=== PATIENT | female | born 1960 | race Caucasian/White ===

== ENCOUNTER 2019-11-10 06:00 | Outpatient (RCR) | payer MEDICARE, SELFPAY | END 2019-11-23 00:01 | LOC: LAB 06:00 | PROVIDERS: Family Provider Family Medicine; Visit Provider Nurse Practitioner Family | DX: N39.0 Urinary tract infection, site not specified (principal); G40.219 Localization-related (focal) (partial) symptomatic epilepsy and epileptic syndromes with complex partial seizures, intractable, without status epilepticus; F03.91 Unspecified dementia, unspecified severity, with behavioral disturbance | CPT/HCPCS: 36415; 80177; 80185; 81001 ×2; 87077; 87086 ×3; 87186 ==

== ENCOUNTER 2021-10-09 09:37 | Inpatient (IN) | payer MEDICARE, MEDICAID, SELFPAY ==
--- NOTE | 2021-10-09 09:39 | XR_ITS ---
WS: [id number] Exam: XR chest 1V portable [id number] Date/Time of Exam: 10/09/2021 9:40 AM Reason For Exam: weakness No priors. Groundglass infiltrate in the right lower lobe. Left lung is clear. Normal cardiomediastinal silhouet te. The lungs are fully inflated. No pleural effusions. Bony structures are intact. XR/XR chest 1V portable [id number] IMPRESSION: 1. Groundglass infiltrate in the right lower lobe. This could represent chronic change or active pneumonia.
[2021-10-09 09:45] VITALS: BP 136/86; PULSE 104; RESP 20; TEMP 36.8; O2SAT 96; BMI 36.5
--- NOTE | 2021-10-09 12:31 | PC.NURSE ---
Unable to draw blood, will save vein for IV.
[2021-10-09 12:50] VITALS: BP 116/79; PULSE 81; RESP 16; O2SAT 100
[2021-10-09 15:31] VITALS: BP 95/73; PULSE 108; O2SAT 95
--- NOTE | 2021-10-09 16:25 | ED_ITS ---
HPI - General Adult General: Chief complaint: General Medical Stated complaint: GENERAL WEAKNESS/ NOT EATING Time Seen by Provider: 10/09/21 16:11 History of Present Illness: HPI narrative: 61-year-old female presents emergency room with her sister. She has been having stomach upset for the last week. She has had recurrent UTIs (~urinalysis with a week ago that was normal). But the patient has not really been acting her normal self she has been weak and not eating or drinking well. She is concerned she is dehydrated. Evidently she was brought here by ambulance but the ambulance brought her to the waiting room. History is very limited patient is aphasic due to hydrops. Onset (ago): week(s) Location: abdomen Severity: mild Relieving factors: none Exacerbating factors: none Associated symptoms: Reports vomiting; Deny cough, decreased appetite, fevers/chills, rash, seizures, short of breath or weakness Treatments prior to arrival: none Review of Systems General: Reports: ROS unobtainable due to medical condition (Patient aphasic. Vomiting reported by custodial and by family member at) GI: Reports: vomiting Skin/Breast: Denies: rash [facility] PFS: Medical History (Updated 10/12/21 @ 07:38 by Estevan Alexis DO) COVID-19 Hydrops fetalis, antepartum Intellectual disability [facility] resident Seizure disorder Physical Exam Const: COMMON NORMALS: no acute distress GENERAL APPEARANCE: cooperative and comfortable ORIENTATION/CONSCIOUSNESS: Yes awake HENMT: COMMON NORMALS: normocephalic, atraumatic and external ears normal HEAD & SCALP: normocephalic and atraumatic EXTERNAL EAR: Yes external ears normal Lymph: LYMPHATIC: no lymphadenopathy noted and no lymphedema noted Resp: COMMON NORMALS: normal respiratory effort and No use of accessory muscles AUSCULTATION: rhonchi Cardio: COMMON NORMALS: regular rate, regular rhythm and No murmurs present (Cardio) RATE: regular rate RHYTHM: regular rhythm GI: COMMON NORMALS: Soft to palpation and No hepatosplenomegaly present AUSCULTATION: Yes normoactive bowel sounds PALPATION: Yes Soft to palpation, No Tenderness to palpation present (GI), No Guarding due to palpation present (GI) and Yes No hepatosplenomegaly present Extremity: COMMON NORMALS: normal to inspection, capillary refill normal, no clubbing, cyanosis or edema, no calf tenderness and no pedal edema Skin: COMMON NORMALS: no rashes or lesions noted GENERAL SKIN EXAM: no rashes or lesions noted Course Vital Signs: Vital signs: Vital Signs Temperature 98.2 F 10/12/21 03:50 Pulse Rate 79 10/12/21 03:50 Respiratory Rate 17 10/12/21 03:50 Blood Pressure 138/59 10/12/21 03:50 Pulse Oximetry 94 10/12/21 03:50 MDM - General Adult MDM Narrative: Medical decision making narrative: Labs imaging and EKG reviewed. Pneumonia and hypernatremia. Reviewed results with family member at the bedside. Will admit discussed with Dr. West orders are written. Lab Data: Labs: Lab Results 10/08/21 10/09/21 10/09/21 23:37 16:55 16:55 WBC 21.5 10^3/uL H 10 ^3/uL (4.0-10.0) RBC 4.90 10^6/uL 10^6 /uL (4.1-5.3) Hgb 15.5 g/dL H g/dL (11.5-15.3) Hct 49.3 % H % (37.0-47.0) MCV 100.6 fl H fl (81-99) MCH 31.6 pg pg (28.0-34.0) MCHC 31.4 g/dL g/dL (30.0-36.0) RDW 14.1 % % (12.1-15.1) Plt Count 243 10^3/cmm 10^3 /cmm (130-400) MPV 12.7 fL H fL (7.4-10.4) Neut % (Auto) 82.6 % % Lymph % (Auto) 11.5 % % [place] % (Auto) 4.7 % % Eos % (Auto) 0.6 % % Baso % (Auto) 0.1 % % Neut # (Auto) 17.78 10^3/uL H 1 0^3/uL (1.8-7.7) Lymph # (Auto) 2.5 10^3/uL 10^3/ uL (0.8-4.8) [place] # (Auto) 1.0 10^3/uL H 10^ 3/uL (0.2-0.9) Eos # (Auto) 0.1 10^3/uL 10^3/ uL (0.0-0.8) Baso # (Auto) 0.0 10^3/uL 10^3/ uL (0.0-0.1) Nucleated RBC % (a uto) 0 % % Nucleated RBCs # 0.0 /100WBC /100W BC Sodium 160 mmol/L H mmol /L (136-145) Potassium 4.1 mmol/L mmol/L (3.5-5.1) Chloride 119 mmol/L H mmol /L (98-107) Carbon Dioxide 29 mmol/L mmol/L (22-29) Anion Gap 16.1 (5-19) BUN 30 mg/dL H mg/dL (8-23) Creatinine 0.7 mg/dL mg/dL (0.5-0.9) GFR Calculation 85.4 mL/min L mL/ min (90-130) Glucose 134 mg/dL H mg/dL (65-115) Estimat Average Gl ucose Hemoglobin A1c Calculated Osmolal ity 338 mOsm/kg H mOs m/kg (285-295) Calcium 8.9 mg/dL mg/dL (8.5-10.5) Total Bilirubin 0.4 mg/dL mg/dL (0.15-1.2) AST 12 U/L U/L (0-32) ALT 9 U/L U/L (0-33) Alkaline Phosphata se 150 IU/L H IU/L (35-105) Total Protein 8.1 g/dL g/dL (6.6-8.7) Albumin 4.1 g/dL g/dL (3.5-5.2) Globulin 4.0 g/dL g/dL (1.3-4.6) Urine Color Urine Appearance Urine pH Ur Specific Gravit y Urine Protein Urine Glucose (UA) Urine Ketones Urine Blood Urine Nitrate Urine Bilirubin Urine Urobilinogen Ur Leukocyte Rachael ase Urine RBC Urine WBC Ur Squamous Epith Cells Amorphous Sediment Urine Bacteria Hyaline Casts Urine Mucus Phenytoin Influenza Type A A g Negative (Negative) Influenza Type B A g Negative (Negative) SARS-CoV-2 Ag (Rap id) 10/09/21 10/09/21 10/09/21 16:55 16:55 16:55 WBC RBC Hgb Hct MCV MCH MCHC RDW Plt Count MPV Neut % (Auto) Lymph % (Auto) [place] % (Auto) Eos % (Auto) Baso % (Auto) Neut # (Auto) Lymph # (Auto) [place] # (Auto) Eos # (Auto) Baso # (Auto) Nucleated RBC % (a uto) Nucleated RBCs # Sodium Potassium Chloride Carbon Dioxide Anion Gap BUN Creatinine GFR Calculation Glucose Estimat Average Gl ucose 128 Hemoglobin A1c 6.1 % H % (4.0-6.0) Calculated Osmolal ity Calcium Total Bilirubin AST ALT Alkaline Phosphata se Total Protein Albumin Globulin Urine Color Yellow (Yellow) Urine Appearance Cloudy (CLEAR) Urine pH 5 (5-7) Ur Specific Gravit y 1.025 (1.005-1.030) Urine Protein 1+ H (Negative) Urine Glucose (UA) Trace H (Normal) Urine Ketones 1+ H (Negative) Urine Blood Neg (Negative) Urine Nitrate Negative (Negative) Urine Bilirubin 1+ H (Negative) Urine Urobilinogen 4 mg/dL H mg/dL (Negative) Ur Leukocyte Rachael ase 2+ H (Negative) Urine RBC 0-4 /hpf H /hpf (0-2) Urine WBC 5-10 /hpf H /hpf (0-5) Ur Squamous Epith Cells 5-10 /hpf H /hpf (0-5) Amorphous Sediment Not Reportable Urine Bacteria 3+ /hpf H /hpf (NONE) Hyaline Casts 0-4 /lpf H /lpf Urine Mucus 1+ /hpf /hpf Phenytoin Influenza Type A A g Influenza Type B A g SARS-CoV-2 Ag (Rap id) Negative (Negative) 10/09/21 16:55 WBC RBC Hgb Hct MCV MCH MCHC RDW Plt Count MPV Neut % (Auto) Lymph % (Auto) [place] % (Auto) Eos % (Auto) Baso % (Auto) Neut # (Auto) Lymph # (Auto) [place] # (Auto) Eos # (Auto) Baso # (Auto) Nucleated RBC % (a uto) Nucleated RBCs # Sodium Potassium Chloride Carbon Dioxide Anion Gap BUN Creatinine GFR Calculation Glucose Estimat Average Gl ucose Hemoglobin A1c Calculated Osmolal ity Calcium Total Bilirubin AST ALT Alkaline Phosphata se Total Protein Albumin Globulin Urine Color Urine Appearance Urine pH Ur Specific Gravit y Urine Protein Urine Glucose (UA) Urine Ketones Urine Blood Urine Nitrate Urine Bilirubin Urine Urobilinogen Ur Leukocyte Rachael ase Urine RBC Urine WBC Ur Squamous Epith Cells Amorphous Sediment Urine Bacteria Hyaline Casts Urine Mucus Phenytoin 46.4 ug/mL H* ug/ mL (10-20) Influenza Type A A g Influenza Type B A g SARS-CoV-2 Ag (Rap id) Discharge Plan Discharge Patient Disposition: Admitted As Inpatient Admit Provider: Fracisco Robison Clinical Impression: Pneumonia, AMS (altered mental status), Hydrops fetalis, antepartum, Intellectual disability, Hypernatremia, Dehydration, [facility] resident Condition: Stable Coding Level of Care Code ED Medical Instrument Technician for Chg Fwd Exam Comprehensive
[2021-10-09 17:00] VITALS: PULSE 100; O2SAT 95
[2021-10-09 17:12] LABS: Basophils % 0.1 %; Eosinophils # 0.1 10^3/uL (0.0-0.8); Eosinophils % 0.6 %; Hematocrit 49.3 % (37.0-47.0); Hemoglobin 15.5 g/dL (11.5-15.3); Lymphocytes # 2.5 10^3/uL (0.8-4.8); Lymphocytes % 11.5 %; Mean Corpuscular HGB Conc 31.4 g/dL (30.0-36.0); Mean Corpuscular Hemoglobin 31.6 pg (28.0-34.0); Mean Corpuscular Volume 100.6 fl (81-99); Mean Platelet Volume 12.7 fL (7.4-10.4); Monocytes % 4.7 %; Neutrophils # 17.78 10^3/uL (1.8-7.7); Neutrophils % 82.6 %; Nucleated Red Blood Cells % 0 %; Platelet Count 243 10^3/cmm (130-400); Red Cell Distribution Width 14.1 % (12.1-15.1); White Blood Count 21.5 10^3/uL (4.0-10.0)
[2021-10-09 17:31] LABS: Alanine Aminotransferase 9 U/L (0-33); Albumin Level 4.1 g/dL (3.5-5.2); Alkaline Phosphatase 150 IU/L (35-105); Anion Gap 16.1 (5-19); Aspartate Amino Transferase 12 U/L (0-32); Blood Urea Nitrogen 30 mg/dL (8-23); Calcium 8.9 mg/dL (8.5-10.5); Carbon Dioxide 29 mmol/L (22-29); Chloride 119 mmol/L (98-107); Glomerular Filtration Rate 85.4 mL/min (90-130); Glucose 134 mg/dL (65-115); Osmolality Calculated 338 mOsm/kg (285-295); Potassium 4.1 mmol/L (3.5-5.1); Sodium 160 mmol/L (136-145); Total Bilirubin 0.4 mg/dL (0.15-1.2); Total Protein 8.1 g/dL (6.6-8.7)
--- NOTE | 2021-10-09 17:50 | CTR_ITS ---
PROCEDURE INFORMATION: Exam: CT Chest With Contrast; Diagnostic Exam date and time: 10/09/2021 5:50 PM Age: 61 years old Clinical indication: Other: Sepsis; Shortness of breath; Additional info: Sepsis, possible pna TECHNIQUE: Imaging protocol: Diagnostic computed tomography of the chest with contrast. Radiation optimization: All CT scans at this facility use at least one of these dose optimization techniques: automated exposure control; mA and/or kV adjustment per patient size (includes targeted exams where dose is matched to clinical indication); or iterative reconstruction. Contrast material: OMNI 300; Contrast volume: 95 ml; Contrast route: INTRAVENOUS (IV); COMPARISON: CR XR chest 1V portable [id number] 10/09/2021 9:59 AM RADIATION DOSE METRICS: Total DLP (mGy-cm): 2135.87 FINDINGS: Lungs: Ground-glass opacities in the right middle and lower lobes. Dependent atelectasis in both lungs. Pleural spaces: Unremarkable. No pneumothorax. No pleural effusion. Heart: Unremarkable. No cardiomegaly. No pericardial effusion. Aorta: Unremarkable. No aortic aneurysm. Lymph nodes: Unremarkable. No enlarged lymph nodes. Diaphragm: Large hiatal hernia. Bones/joints: Thoracic curvature and kyphosis. T10 and T12 vertebral body hemangiomas. No acute fracture. Soft tissues: Unremarkable. IMPRESSION: 1. Ground-glass opacities in the right middle and lower lobes, suspicious for pneumonia. PROCEDURE INFORMATION: Exam: CT Abdomen And Pelvis With Contrast Exam date and time: 10/09/2021 5:50 PM Age: 61 years old Clinical indication: Other: Sepsis; Shortness of breath; Additional info: Sepsis, possible pna TECHNIQUE: Imaging protocol: Computed tomography of the abdomen and pelvis with contrast. Radiation optimization: All CT scans at this facility use at least one of these dose optimization techniques: automated exposure control; mA and/or kV adjustment per patient size (includes targeted exams where dose is matched to clinical indication); or iterative reconstruction. Contrast material: OMNI 300; Contrast volume: 95 ml; Contrast route: INTRAVENOUS (IV); COMPARISON: CR XR chest 1V portable [id number] 10/09/2021 9:59 AM RADIATION DOSE METRICS: Total DLP (mGy-cm): 2135.87 FINDINGS: Liver: Normal. No mass. Gallbladder and bile ducts: Normal. No calcified stones. No ductal dilation. Pancreas: Normal. No ductal dilation. Spleen: Normal. No splenomegaly. Adrenal glands: Normal. No mass. Kidneys and ureters: Normal. No hydronephrosis. Stomach and bowel: Moderate amount of stool in the colon and rectum. The small bowel is unremarkable. No wall thickening or obstruction. Appendix: No evidence of appendicitis. Intraperitoneal space: Unremarkable. No free air. No significant fluid collection. Vasculature: Unremarkable. No abdominal aortic aneurysm. Lymph nodes: Unremarkable. No enlarged lymph nodes. Urinary bladder: Small gas bubble in the urinary bladder is most likely from catheterization. No wall thickening. Reproductive: The uterus and ovaries are unremarkable. Bones/joints: Unremarkable. No acute fracture. Soft tissues: Unremarkable. CT/CT chest abd pel w con* IMPRESSION: 1. No acute abnormality identified in the abdomen or pelvis. 2. Stool volume in the colon and rectum could indicate constipation. Radiation Dose CTDIVOL = (mGy): DLP = 2135.87~2135.87 (mGy-cm)
[2021-10-09 18:12] LABS: SARS Covid-2 Antigen Negative (Negative)
[2021-10-09 18:20] LABS: Blood Urine Neg (Negative); Glucose Urine UA Trace (Normal); Ketones Urine 1+ (Negative); Protein Urine 1+ (Negative); Specific Gravity, Urine 1.025 (1.005-1.030); Urine Appearance Cloudy (CLEAR); Urine Color Yellow (Yellow); pH Urine 5 (5-7)
[2021-10-09 18:21] LABS: Add Urine Microscopic? YES; Bacteria Urine 3+ /hpf; Bilirubin Urine 1+ (Negative); Leukocyte Esterase Urine 2+ (Negative); Nitrate Urine Negative (Negative); RBC Urine 0-4 /hpf (0-2); Urobilinogen Urine 4 mg/dL (Negative)
[2021-10-09 18:22] LABS: Add Urine Culture? Yes; Hyaline Casts Urine 0-4 /lpf; Mucus Urine 1+ /hpf
[2021-10-09] MEDS: iohexol 300 mg/mL 100 mL Btl IV (18:40)
--- NOTE | 2021-10-09 18:42 | P.HP_ITS ---
Providers/Chief Complaint Admitting Physician: Fracisco Robison MD Primary Care Provider: Macy Stevenson DO Chief Complaint: GENERAL WEAKNESS/ NOT EATING History of Present Illness History taken to chart review and talking to sister at bedside. Lexis Eckert is a 61 year old female with past medical history of hydrocephalus, senior care resident, seizure disorder, at baseline aphasic with intellectual disabilities, COVID-19 last year presented to the ER from senior care. As per the sister patient has been having a rough month. Initially she had a stomach bug when she is having diarrhea, nausea and vomiting followed by lethargy, poor oral intake, increasing confusion. At baseline as per the sister patient is aphasic, not able to recognize anybody but for last few days to weeks she is becoming more confused and thrashing her limbs and legs more with poor oral intake. At baseline patient takes soft diet. As per the sister at bedside patient is DNR/DNI. They would not want any aggressive treatment and would want to hold off on NG tube placement as long as possible. Blood work in the ER showed a white count 21,000, hemoglobin of 15.5, MCV of 100.6, sodium of 160, chloride of 119, creatinine of 0.7, alkaline phosphatase of 150, UA negative for nitrite, 2+ leuk esterase Review of Systems General: Reports: ROS unobtainable due to mental status Medications/Allergies Home Medications Medication Instructions Recorded Confirmed Last Taken Type clobazam 5 mg PO DAILY 10/09/21 10/09/21 1 Day Ago History ~10/08/21 5 mg levetiracetam 1,000 mg PO BID 10/09/21 10/09/21 10/09/21 History phenytoin 230 mg PO BID 10/09/21 10/09/21 10/09/21 History calcium-vitamin D3-vitamin K 1 tab PO DAILY 10/10/21 10/10/21 10/09/21 08:00 History [Viactiv] cranberry 400 mg PO BID 10/10/21 10/10/21 10/09/21 07:00 History naproxen 500 mg PO BID 10/10/21 10/10/21 10/09/21 08:00 History polyethylene glycol 3350 [ClearLax] 17 g PO DAILY 10/10/21 10/10/21 10/09/21 08:00 History 17 gram sennosides-docusate sodium 1 tab-cap PO BID 10/10/21 10/10/21 10/09/21 07:00 History [Senna-S] Allergies Allergy/AdvReac Type Severity Reaction Status Date / Time loratadine [From Claritin] Allergy Unknown Verified 10/09/21 09:45 Penicillins Allergy Unknown Verified 10/09/21 09:45 PFSH Acute PFSH: Medical History (Updated 10/09/21 @ 21:40 by Fracisco Robison MD) COVID-19 Hydrops fetalis, antepartum long-term resident Seizure disorder Vitals/I&O/Wt Last Vital Signs Temp 98.2 F 10/09/21 09:45 Pulse 100 10/09/21 17:00 Resp 16 10/09/21 12:50 BP 95/73 10/09/21 15:31 Pulse Ox 95 10/09/21 17:00 Weight last 48 hrs Weight 84.822 kg Physical Exam Narrative: EXAM NARRATIVE: General: No acute distress, aphasic, thrashing her limbs around, bilateral upper limb contractures present HEENT: PERRLA, pupils bilaterally equal and reactive Chest: Normal vesicular breath sounds, coarse crackles present in right middle and lower zone, equal good air entry bilaterally CVS: S1-S2 regular, no murmurs, no tachycardia, no gallops, no rubs Abdomen: Soft, nontender, no organomegaly, bowel sounds present Neuro: No facial deformity, moving all 4 limbs Data : 10/10/21 05:12 10/10/21 05:12 A&P Assessment and plan (1) Pneumonia: Status: Acute (2) AMS (altered mental status): Status: Acute (3) Hypernatremia: Status: Acute (4) Dehydration: Status: Acute (5) Seizure disorder: Status: Acute (6) long-term resident: Status: Acute Additional A&P Information Altered mental status: Most likely secondary to possible infection/pneumonia versus secondary to hypernatremia. Pneumonia: Cannot rule out aspiration pneumonia. Check pro-Adam, blood culture, sputum culture, flu swab, COVID-19 antigen, urina lysis, urine Legionella, bacterial antigen, urine culture. Oxygen supplementation keeping saturation over 90%. DuoNebs every 6 hour, budesonide twice daily. Check CT chest abdomen pelvis with contrast. N.p.o. for now. Will do swallow evaluation. For now start patient on vancomycin, aztreonam as patient is penicillin allergic and azithromycin. Hypernatremia: Free water deficit: Most likely secondary dehydration. Start patient on D5 half NS at 75 cc/h. Check BMP every 4 hours. Check urine lites. Altered mental status could be secondary to multiple seizure medications. For now continue home dose of phenytoin, Keppra, clobazam. Check phenytoin and Keppra levels. Check CT head, urine drug screen. CODE STATUS: DNR/DNI. NPO. Check lower limb Dopplers. Lovenox 40 mg subcu daily. Protonix for PUD prophylaxis. Attestations Medical Necessity Statement*: Admission for more than 2 midnights for management of altered mental status, hypernatremia, pneumonia most likely aspiration pneumonia Time Spent in Patient Care: Greater than 35 minutes (>than 50% of time spent in counselling and/or direct pt care on unit) . Coding Level of Care Code Acute Teletypesetter Monitor for [facility]reya Diagnoses Pneumonia J18.9 AMS (altered mental status) R41.82 Hypernatremia E87.0 Dehydration E86.0 Seizure disorder G40.909 long-term resident Z59.3
[2021-10-09 19:53] LABS: Creatine Phosphokinase 19 U/L (26-192); Magnesium 2.7 mg/dL (1.7-2.3); Thyroid Stimulating Hormone 1.02 uIU/mL (0.27-4.20)
[2021-10-09 19:58] LABS: Estmated Average Glucose 128; Hemoglobin A1C 6.1 % (4.0-6.0)
[2021-10-09 20:18] LABS: Procalcitonin 0.21 ng/mL (0-0.5)
[2021-10-09] MEDS: aztreonam 2,000 MG in sodium chloride 0.9% (plus) 100 ML 200 MG IV (21:06)
[2021-10-09 21:45] VITALS: BP 132/92
[2021-10-09 21:52] LABS: Iron 31 ug/dL (37-145)
[2021-10-09 22:15] LABS: Unsaturated Iron Binding > 182 ug/dL (112-347)
[2021-10-09 22:41] VITALS: BP 122/77; PULSE 93; RESP 16; TEMP 36.8; O2SAT 93
[2021-10-09 22:41] LABS: Anion Gap 14.1 (5-19); Blood Urea Nitrogen 31 mg/dL (8-23); Calcium 8.5 mg/dL (8.5-10.5); Carbon Dioxide 28 mmol/L (22-29); Chloride 118 mmol/L (98-107); Glomerular Filtration Rate 85.4 mL/min (90-130); Glucose 133 mg/dL (65-115); Osmolality Calculated 330 mOsm/kg (285-295); Potassium 4.1 mmol/L (3.5-5.1); Sodium 156 mmol/L (136-145)
[2021-10-09 22:45] VITALS: BMI 34.4
[2021-10-09] MEDS: famotidine 20 mg/2 mL INJ IVP (23:30)
[2021-10-09] MEDS: sennosides-docusate Tablet 1 TAB PO (23:30)
[2021-10-09] MEDS: magnesium hydroxide 30 mL UDC PO (23:30)
[2021-10-09] MEDS: hydrocortisone 100 mg/2 mL SDV 50 MG IVP (23:30)
[2021-10-09] MEDS: ferrous gluconate 324 mg Tablet PO (23:30)
[2021-10-09] MEDS: dextrose 5%-sod chloride 0.45% 1,000 ML 75 ML IV (23:31)
[2021-10-10] VITALS (12 sets, daily range): BP systolic 119–146; BP diastolic 65–82; PULSE 79–96; RESP 16–19; TEMP 36.3–36.9; O2SAT 93–99
[2021-10-10] MEDS: vancomycin 1,000 MG in sodium chloride 0.9% 250 ML 250 MG IV (00:03)
[2021-10-10 00:31] LABS: Phenytoin Dilantin 46.4 ug/mL (10-20)
[2021-10-10 01:01] LABS: Influenza A by IFA Negative (Negative); Influenza B by IFA Negative (Negative)
--- NOTE | 2021-10-10 01:04 | PC.NURSE ---
Dr Lamb notified of pt [facility] lab Phenytoin of 46.4. Telephone order to hold medication for now.
[2021-10-10] MEDS: ipratropium-albuterol 3 mL Neb INHALATION ×2 (03:42→09:36)
[2021-10-10 05:43] LABS: Basophils % 0.2 %; Eosinophils # 0.1 10^3/uL (0.0-0.8); Eosinophils % 0.5 %; Hematocrit 43.9 % (37.0-47.0); Hemoglobin 13.4 g/dL (11.5-15.3); Lymphocytes # 1.5 10^3/uL (0.8-4.8); Lymphocytes % 13.2 %; Mean Corpuscular HGB Conc 30.5 g/dL (30.0-36.0); Mean Corpuscular Hemoglobin 31.2 pg (28.0-34.0); Mean Corpuscular Volume 102.3 fl (81-99); Mean Platelet Volume 12.7 fL (7.4-10.4); Monocytes # 0.4 10^3/uL (0.2-0.9); Monocytes % 3.7 %; Neutrophils # 9.01 10^3/uL (1.8-7.7); Nucleated Red Blood Cells % 0 %; Platelet Count 192 10^3/cmm (130-400); Red Blood Count 4.29 10^6/uL (4.1-5.3); Red Cell Distribution Width 14.2 % (12.1-15.1)
[2021-10-10 06:07] LABS: Alanine Aminotransferase 7 U/L (0-33); Albumin Level 3.3 g/dL (3.5-5.2); Alkaline Phosphatase 112 IU/L (35-105); Anion Gap 16.2 (5-19); Aspartate Amino Transferase 11 U/L (0-32); Blood Urea Nitrogen 27 mg/dL (8-23); Calcium 8.2 mg/dL (8.5-10.5); Carbon Dioxide 23 mmol/L (22-29); Chloride 121 mmol/L (98-107); Cholesterol 152 mg/dL (0-200); Globulin 3.8 g/dL (1.3-4.6); Glomerular Filtration Rate 125.9 mL/min (90-130); Glucose 201 mg/dL (65-115); HDL Cholesterol 46 mg/dL (60-100); LDL Cholesterol Calculated 87 mg/dL (50-129); LDL HDL Ratio 1.89 RATIO (0.00-3.22); Osmolality Calculated 333 mOsm/kg (285-295); Phosphorus 2.5 mg/dL (2.5-4.5); Potassium 4.2 mmol/L (3.5-5.1); Sodium 156 mmol/L (136-145); Total Bilirubin 0.3 mg/dL (0.15-1.2); Total Protein 7.1 g/dL (6.6-8.7); Triglycerides 93 mg/dL (0-150)
--- NOTE | 2021-10-10 09:21 | PC.CHAP ---
Pastoral Care Encounter/Spiritual Assessment Type of Contact [] Declined field underwriter visit [] Patient/Family/Request visit [] Outpatient visit [] Follow-up visit [] Physician referral [] Code/Alert [x] Routine visit [] Staff referral [] Actively dying [] Patient sleeping [] Family support [] [] Out of room [] Palliative care [] [] Receiving care in room [] Pre-surgical visit [] Trauma [] Long length of stay [] ICU visit [] Other: Relational/Emotional Strength [] Patient feels connected with others/family/visitors/staff [] Distress [] Loneliness/isolation [] Abandonment Spirituality of Patient [] Person of Lauren [] Attends Pentecostal of their Lauren [] Believes in Prayer [] Reads Bible or Buddhist materials [] There are Spiritual issues to be addressed Car Hopper Interventions [x] Prayer [] Active listening [] Non-anxious presence [] Spiritual/emotional support [] Crisis/trauma care [] Spiritual counseling [] Bereavement support [] Provided bereavement packet [] Provided Bible/devotional materials [] Provided toy/stuffed animal, coloring book to patient or family member [] Provided Communion [] Anointing/[place] [] Salvation [x] Completed spiritual assessment [] Other: Impact on Illness or Injury [] Angry [] Fearful [] Anxious [] Often cries [] Exhaustion [] Unable to work [] Unable to attend oriental orthodox [] Unable to walk/stand [] Unable to read [] Unable to drive [] Unable to eat/drink [] Unable to sleep [] Unable to be with family [] Patient intubated [] Other: Summary patient sister says she feeling better Time spent with patient 10 min
[2021-10-10] MEDS: aztreonam 1,000 MG in sodium chloride 0.9% (plus) 50 ML 100 MG IV ×2 (09:33→19:42)
[2021-10-10] MEDS: enoxaparin 40 mg/0.4 mL Syringe SUBCUT (09:35)
[2021-10-10] MEDS: budesonide 0.5 mg/2 mL Neb INHALATION ×2 (09:36→20:26)
[2021-10-10] MEDS: dextrose 5% 1,000 ML 100 ML IV ×2 (09:47→19:42)
[2021-10-10] MEDS: famotidine 20 mg/2 mL INJ IVP ×2 (09:55→20:40)
[2021-10-10] MEDS: vancomycin 1,000 MG in sodium chloride 0.9% 250 ML 60 MG IV ×2 (10:18→20:53)
[2021-10-10] MEDS: glycerin adult supp 1 EACH PR (10:42)
[2021-10-10 10:55] LABS: Glucose Point of Care 181 mg/dL (70-110)
[2021-10-10] MEDS: insulin lispro 100 unit/1 mL SUBCUT (12:09)
[2021-10-10] MEDS: azithromycin 500 MG in sodium chloride 0.9% 250 ML 250 MG IV ×2 (12:17→20:40)
--- NOTE | 2021-10-10 13:30 | P.PN_ITS ---
Subjective Subjective: Interval history: No acute events overnight. Patient has remained hemodynamically stable and afebrile. Sister at bedside. Trying to get up blood draw with pathology laboratory aide. Patient has not had any bowel movement since admission. Vitals/I&O/Wt Last Vital Signs Temp 97.5 F L 10/10/21 11:16 Pulse 92 10/10/21 11:16 Resp 17 10/10/21 11:16 BP 130/79 10/10/21 11:16 Pulse Ox 99 10/10/21 11:16 10/09/21 10/10/21 10/10/21 22:59 06:59 14:59 Intake Total 100 / 100 461 / 561 50 / 50 Balance 100 / 100 461 / 561 50 / 50 Weight last 48 hrs Weight 83.603 kg Weight 82.611 kg Weight 84.822 kg Physical Exam Narrative: EXAM NARRATIVE: General: No acute distress, aphasic, thrashing her limbs around, bilateral upper limb contractures present HEENT: PERRLA, pupils bilaterally equal and reactive Chest: Normal vesicular breath sounds, coarse crackles present in right middle and lower zone, equal good air entry bilaterally CVS: S1-S2 regular, no murmurs, no tachycardia, no gallops, no rubs Abdomen: Soft, nontender, no organomegaly, bowel sounds present Neuro: No facial deformity, moving all 4 limbs Urinary Catheter Management^: Mcgrath: Cath Placed During This Visit: yes Reason for Continuing Indwelling Catheter: Accurate Measurement of Urinary Output in Critically Ill Patients Urinary Catheter Date of Insertion: 10/09/21 Urinary Catheter Time of Insertion: 23:30 Data : 10/10/21 05:12 10/10/21 05:12 Micro: Microbiology 10/09/21 16:55 Bacterial Antigens - Final Urine Kidney 10/09/21 16:55 Legionella Urinary Antigen - Final Unknown Source 10/09/21 19:00 Blood Culture - Preliminary Blood SPECIMEN COLLECTED 10/09/21 19:10 Blood Culture - Preliminary Blood SPECIMEN COLLECTED A&P Assessment and plan (1) Pneumonia: Status: Acute (2) AMS (altered mental status): Status: Acute (3) Hypernatremia: Status: Acute (4) Leukocytosis: Most likely secondary dehydration. Cannot rule out infection for now. Status: Acute (5) Dehydration: Status: Acute (6) Seizure disorder: Status: Acute (7) penitentiary resident: Status: Acute (8) Intellectual disability: Status: Acute Additional A&P Information Altered mental status: Most likely secondary to hypernatremia, cannot rule out metabolic encephalopathy secondary to elevated phenytoin levels. Less likely infectious source for now. Pneumonia: Cannot rule out aspiration pneumonia. Though less likely. Most likely having chronic aspiration. Pro-Adam negative, flu negative, rapid COVID-19 antigen negative, urine Le gionella, bacterial antigen negative. Blood culture, urine culture so far pending. Leukocytosis down to 11,000 from 21,000 on day of admission. Most likely leukocytosis secondary to dehydration and hemoconcentration. NPO. Swallow evaluation. For now continue vancomycin, aztreonam, IV azithromycin. Will de-escalate antibiotics within next 24 hours if patient remains afebrile. Switch all oral to IV medications if possible. Hypernatremia: Sodium of 156 today. Sister/DPOA would want to hold off on NG tube placement for as long as possible. Most likely secondary dehydration. Switch to D5W at 100 cc/h. Somehow urine lites not done yesterday. BMP every 6 hours Altered mental status could be secondary to multiple seizure medications. Phenytoin level elevated. For now we will hold off further phenytoin. Repeat phenytoin level to confirm. Keppra level pending. We will try to switch oral to IV medications if possible. Constipation: Continue with aggressive bowel regimen. Recent suppository. If does not work we will do better molasses enema. CODE STATUS: DNR/DNI. NPO. Lovenox for DVT prophylaxis Protonix for PUD prophylaxis. Attestations Medical Necessity Statement*: Requires further hospitalization for management of hypernatremia, altered mental status, possible pneumonia Time Spent in Patient Care: Greater than 35 minutes (>than 50% of time spent in counselling and/or direct pt care on unit) . Coding Level of Care Code Acute Fish Hatchery Laborer for Libby Fwd Diagnoses Pneumonia J18.9 AMS (altered mental status) R41.82 Hypernatremia E87.0 Leukocytosis D72.829 Dehydration E86.0 Seizure disorder G40.909 penitentiary resident Z59.3 Intellectual disability F79
[2021-10-10] MEDS: diphenhydrAMINE cream 30 gm 1 APPLIC TOPICAL (15:30)
[2021-10-10 15:46] LABS: Blood Urea Nitrogen 20 mg/dL (8-23); Calcium 7.5 mg/dL (8.5-10.5); Carbon Dioxide 22 mmol/L (22-29); Chloride 119 mmol/L (98-107); Glomerular Filtration Rate 125.9 mL/min (90-130); Glucose 131 mg/dL (65-115); Osmolality Calculated 316 mOsm/kg (285-295); Sodium 151 mmol/L (136-145)
[2021-10-10 15:52] LABS: Anion Gap 13.4 (5-19); Potassium 3.4 mmol/L (3.5-5.1)
[2021-10-10 15:59] LABS: Phenytoin Dilantin 32.2 ug/mL (10-20)
[2021-10-10 16:02] LABS: Folate Level 6.9 ng/mL (4.8-37.3); Vitamin B12 660 pg/mL (232-1245)
[2021-10-10 17:03] LABS: Glucose Point of Care 105 mg/dL (70-110)
[2021-10-10 21:16] LABS: Blood Urea Nitrogen 18 mg/dL (8-23); Calcium 7.6 mg/dL (8.5-10.5); Carbon Dioxide 20 mmol/L (22-29); Chloride 117 mmol/L (98-107); Glomerular Filtration Rate 125.9 mL/min (90-130); Glucose 109 mg/dL (65-115); Osmolality Calculated 308 mOsm/kg (285-295); Sodium 148 mmol/L (136-145)
[2021-10-10 21:21] LABS: Glucose Point of Care 120 mg/dL (70-110)
[2021-10-10 21:24] LABS: Anion Gap 14.7 (5-19); Potassium 3.7 mmol/L (3.5-5.1)
--- NOTE | 2021-10-10 22:41 | USCV_ITS ---
Lexis Eckert Age: 61 Gender: F : 1960 Exam Date: 10/10/2021 08:07 Ordering Phys: Fracisco Robison MD Technologist: TANISHA [place] [facility] [place]ication: DVT HISTORY: Lower extremity swelling. PROCEDURES: Venous duplex imaging was performed in bilateral lower extremities. The following venous structures were evaluated: common femoral vein, profunda vein, proximal portion of the greater saphenous vein, superficial femoral vein, and the popliteal vein. In addition, the posterior tibial and peroneal trunk were evaluated. FINDINGS: . Normal 2-D Doppler and augmentation and compressibility throughout the lower extremity venous structures. Additional imaging through the proximal calf veins also reveals no thrombus. Limited evaluation of the greater saphenous vein is patent with no thrombus.. CONCLUSIONS No evidence of right lower extremity DVT. No evidence of left lower extremity DVT. Hiram Vo MD (Electronically Signed) Final Date: 10 October 2021 08:56 S
[2021-10-11] VITALS (10 sets, daily range): BP systolic 114–154; BP diastolic 60–93; PULSE 76–86; RESP 16–18; TEMP 36.4–36.7; O2SAT 93–98; BMI 34.8
[2021-10-11] MEDS: dextrose 5% 1,000 ML 100 ML IV ×2 (04:35→15:35)
[2021-10-11 06:32] LABS: Glucose Point of Care 127 mg/dL (70-110)
[2021-10-11] MEDS: enoxaparin 40 mg/0.4 mL Syringe SUBCUT (08:11)
[2021-10-11] MEDS: aztreonam 1,000 MG in sodium chloride 0.9% (plus) 50 ML 100 MG IV (08:12)
[2021-10-11] MEDS: sennosides-docusate Tablet 1 TAB PO (09:20)
[2021-10-11] MEDS: budesonide 0.5 mg/2 mL Neb INHALATION ×2 (09:34→20:36)
[2021-10-11 10:43] LABS: Glucose Point of Care 124 mg/dL (70-110)
[2021-10-11] MEDS: famotidine 20 mg/2 mL INJ IVP ×2 (10:56→22:36)
[2021-10-11] MEDS: levofloxacin-dextrose 5 % 500 MG/100 ML PREMIX 100 MG IV (11:04)
[2021-10-11 12:07] LABS: Basophils % 0.2 %; Eosinophils # 0.2 10^3/uL (0.0-0.8); Eosinophils % 3.3 %; Hematocrit 41.2 % (37.0-47.0); Hemoglobin 13.2 g/dL (11.5-15.3); Lymphocytes # 2.1 10^3/uL (0.8-4.8); Lymphocytes % 43.1 %; Mean Corpuscular Hemoglobin 31.7 pg (28.0-34.0); Mean Platelet Volume 12.6 fL (7.4-10.4); Monocytes # 0.4 10^3/uL (0.2-0.9); Monocytes % 8.8 %; Neutrophils # 2.12 10^3/uL (1.8-7.7); Neutrophils % 44.2 %; Nucleated Red Blood Cells % 0 %; Red Blood Count 4.16 10^6/uL (4.1-5.3); Red Cell Distribution Width 13.6 % (12.1-15.1); White Blood Count 4.8 10^3/uL (4.0-10.0)
[2021-10-11 12:25] LABS: Alanine Aminotransferase < 5 U/L (0-33); Albumin Level 3.1 g/dL (3.5-5.2); Alkaline Phosphatase 97 IU/L (35-105); Blood Urea Nitrogen 11 mg/dL (8-23); Calcium 7.6 mg/dL (8.5-10.5); Carbon Dioxide 22 mmol/L (22-29); Chloride 110 mmol/L (98-107); Globulin 2.9 g/dL (1.3-4.6); Glomerular Filtration Rate 125.9 mL/min (90-130); Glucose 116 mg/dL (65-115); Osmolality Calculated 300 mOsm/kg (285-295); Sodium 145 mmol/L (136-145); Total Bilirubin 0.3 mg/dL (0.15-1.2)
[2021-10-11 12:29] LABS: Anion Gap 16.1 (5-19); Aspartate Amino Transferase 10 U/L (0-32); Potassium 3.1 mmol/L (3.5-5.1)
[2021-10-11 13:01] LABS: Platelet Count 180 10^3/cmm (130-400)
--- NOTE | 2021-10-11 13:35 | P.PN_ITS ---
Subjective Subjective: Interval history: No acute events overnight. Sister is at bedside. Having difficulty getting labs. Has remained hemodynamically stable and afebrile. Continues to remain on room air. Vitals/I&O/Wt Last Vital Signs Temp 98.0 F 10/11/21 11:48 Pulse 77 10/11/21 11:48 Resp 18 10/11/21 11:48 BP 127/86 10/11/21 11:48 Pulse Ox 96 10/11/21 11:48 10/10/21 10/11/21 10/11/21 22:59 06:59 14:59 Intake Total 2401.667 / 2951.667 1468.333 / 4420.000 150 / 150 Output Total 450 / 450 630 / 1080 1100 / 1100 Balance 1951.667 / 2501.667 838.333 / 3340.000 -950 / -950 Weight last 48 hrs Weight 83.603 kg Weight 83.603 kg Weight 82.611 kg Physical Exam Narrative: EXAM NARRATIVE: General: No acute distress, aphasic, more calm today HEENT: PERRLA, pupils bilaterally equal and reactive Chest: Normal vesicular breath sounds, coarse crackles present in right middle and lower zone, equal good air entry bilaterally CVS: S1-S2 regular, no murmurs, no tachycardia, no gallops, no rubs Abdomen: Soft, nontender, no organomegaly, bowel sounds present Neuro: No facial deformity, moving all 4 limbs Urinary Catheter Management^: Mcgrath: Cath Placed During This Visit: yes Reason for Continuing Indwelling Catheter: Acute Urinary Retention or Obstruction Urinary Catheter Date of Insertion: 10/09/21 Urinary Catheter Time of Insertion: 23:30 Data : 10/11/21 11:54 10/11/21 11:54 Micro: Microbiology 10/09/21 16:55 Urine Culture - Final Urine,Clean Catch 10/09/21 19:00 Blood Culture - Preliminary Blood NEGATIVE TO DATE 10/09/21 19:10 Blood Culture - Preliminary Blood NEGATIVE TO DATE 10/09/21 16:55 Bacterial Antigens - Final Urine Kidney A&P Assessment and plan (1) Pneumonia: Status: Acute (2) AMS (altered mental status): Status: Acute (3) Hypernatremia: Status: Acute (4) Leukocytosis: Most likely secondary dehydration. Cannot rule out infection for now. Status: Acute (5) Dehydration: Status: Acute (6) Seizure disorder: Status: Acute (7) group home resident: Status: Acute (8) Intellectual disability: Status: Acute Additional A&P Information Altered mental status: Resolved. Most likely back to her baseline mentation. Primary symptoms most likely secondary to hypernatremia, cannot rule out metabolic encephalopathy secondary to elevated phenytoin levels. Less likely infectious source for now. Pneumonia: Cannot rule out aspiration pneumonia. Though less likely. Most likely having chronic aspiration. Pro-Adam negative, flu negative, rapid COVID-19 antigen negative, urine Legionella, bacterial antigen negative. Blood culture, urine culture so far pending. Leukocytosis down to 11,000 from 21,000 on day of admission. Most likely leukocytosis secondary to dehydration and hemoconcentration. NPO. Swallow evaluation. For now stop vancomycin, azithromycin, aztreonam. Start on Levaquin 500 mg daily. Most likely will do 5-day course. Day 3 of appropriate antibiotics today. We will continue to monitor the culture results and change antibiotics. Needed. Hypernatremia: Trending down. Sister/DPOA would want to hold off on NG tube placement for as long as possible. Continue with D5W at 100 cc/h. BMP daily for now. Altered mental status could be secondary to multiple seizure medications. Phenytoin level elevated. For now continue to holding off on phenytoin. Will repeat level tomorrow morning. Keppra level pending. Constipation: Continue with aggressive bowel regimen. Repeat her rectal suppository. If does not work we will do better molasses enema. CODE STATUS: DNR/DNI. Diet advanced to pur?e dysphagia 1. Will repeat swallow evaluation advance if possible. Lovenox for DVT prophylaxis Protonix for PUD prophylaxis. Plan of treatment discussed in detail with sister at bedside. All the questions were answered. Attestations Medical Necessity Statement*: Requires further hospitalization for management severe hypernatremia, altered mental status with possible aspiration pneumonia Time Spent in Patient Care: Greater than 35 minutes (>than 50% of time spent in counselling and/or direct pt care on unit) . Coding Level of Care Code Acute Corporate Legal Secretary for [facility] Fwd Diagnoses Pneumonia J18.9 AMS (altered mental status) R41.82 Hypernatremia E87.0 Leukocytosis D72.829 Dehydration E86.0 Seizure disorder G40.909 group home resident Z59.3 Intellectual disability F79
--- NOTE | 2021-10-11 14:18 | PC.CHAP ---
Pastoral Care Encounter/Spiritual Assessment Type of Contact [] Declined fourth mate visit [] Patient/Family/Request visit [] Outpatient visit [] Follow-up visit [] Physician referral [] Code/Alert [x] Routine visit [] Staff referral [] Actively dying [] Patient sleeping [] Family support [] [] Out of room [] Palliative care [] [x] Receiving care in room [] Pre-surgical visit [] Trauma [] Long length of stay [] ICU visit [] Other: Relational/Emotional Strength [] Patient feels connected with others/family/visitors/staff [] Distress [] Loneliness/isolation [] Abandonment Spirituality of Patient [] Person of Lauren [] Attends Adventist of their Lauren [] Believes in Prayer [] Reads Bible or Uatsdin materials [] There are Spiritual issues to be addressed Journalism Teacher Interventions [] Prayer [] Active listening [] Non-anxious presence [] Spiritual/emotional support [] Crisis/trauma care [] Spiritual counseling [] Bereavement support [] Provided bereavement packet [] Provided Bible/devotional materials [] Provided toy/stuffed animal, coloring book to patient or family member [] Provided Communion [] Anointing/[place] [] Salvation [] Completed spiritual assessment [] Other: Impact on Illness or Injury [] Angry [x] Fearful [] Anxious [] Often cries [] Exhaustion [x] Unable to work [] Unable to attend confucianism [] Unable to walk/stand [] Unable to read [] Unable to drive [] Unable to eat/drink [] Unable to sleep [] Unable to be with family [] Patient intubated [] Other: Summary not able to eat not able to communicate Time spent with patient 10 mins
--- NOTE | 2021-10-11 14:46 | PC.NURSE ---
MIDLINE LEFT arm ready for use. Primary nurse, Ivis, notified.
[2021-10-11] MEDS: lidocaine 1% 5 ML in potassium chloride premix 100 ML 25 ML IV ×2 (15:32→20:31)
[2021-10-11 16:59] LABS: Glucose Point of Care 129 mg/dL (70-110)
--- NOTE | 2021-10-11 18:11 | PC.NURSE ---
patient refused any oral intake this shift except ice from sister. Central line placed today, refused PO potassium, order changed to IV instead. first bag currently infusing,
[2021-10-11 21:04] LABS: Glucose Point of Care 151 mg/dL (70-110)
[2021-10-12] MEDS: dextrose 5% 1,000 ML 100 ML IV ×2 (02:07→16:29)
[2021-10-12 03:50] VITALS: BP 138/59; PULSE 79; RESP 17; TEMP 36.8; O2SAT 94
[2021-10-12 04:45] LABS: Glucose Point of Care 114 mg/dL (70-110)
[2021-10-12 05:58] LABS: Basophils % 0.2 %; Eosinophils # 0.1 10^3/uL (0.0-0.8); Eosinophils % 2.9 %; Hematocrit 42.4 % (37.0-47.0); Hemoglobin 13.4 g/dL (11.5-15.3); Lymphocytes # 1.9 10^3/uL (0.8-4.8); Lymphocytes % 38.9 %; Mean Corpuscular HGB Conc 31.6 g/dL (30.0-36.0); Mean Corpuscular Hemoglobin 31.1 pg (28.0-34.0); Mean Corpuscular Volume 98.4 fl (81-99); Mean Platelet Volume 12.6 fL (7.4-10.4); Monocytes # 0.5 10^3/uL (0.2-0.9); Neutrophils # 2.33 10^3/uL (1.8-7.7); Neutrophils % 47.8 %; Nucleated Red Blood Cells % 0 %; Platelet Count 169 10^3/cmm (130-400); Red Blood Count 4.31 10^6/uL (4.1-5.3); Red Cell Distribution Width 13.2 % (12.1-15.1); White Blood Count 4.9 10^3/uL (4.0-10.0)
[2021-10-12 06:26] LABS: Alanine Aminotransferase < 5 U/L (0-33); Albumin Level 3.1 g/dL (3.5-5.2); Alkaline Phosphatase 104 IU/L (35-105); Aspartate Amino Transferase 11 U/L (0-32); Blood Urea Nitrogen 6 mg/dL (8-23); Calcium 7.9 mg/dL (8.5-10.5); Carbon Dioxide 22 mmol/L (22-29); Chloride 110 mmol/L (98-107); Globulin 3.5 g/dL (1.3-4.6); Glucose 116 mg/dL (65-115); Osmolality Calculated 297 mOsm/kg (285-295); Sodium 144 mmol/L (136-145); Total Bilirubin 0.3 mg/dL (0.15-1.2); Total Protein 6.6 g/dL (6.6-8.7)
[2021-10-12 07:38] VITALS: BP 121/82; PULSE 77; RESP 14; TEMP 36.4; O2SAT 96
[2021-10-12] MEDS: enoxaparin 40 mg/0.4 mL Syringe SUBCUT (07:46)
[2021-10-12 07:48] LABS: Phenytoin Dilantin 31.9 ug/mL (10-20)
[2021-10-12 07:49] VITALS: PULSE 89; RESP 16; O2SAT 97
[2021-10-12] MEDS: budesonide 0.5 mg/2 mL Neb INHALATION (07:49)
--- NOTE | 2021-10-12 09:36 | PC.SOCIAL ---
IMM updated, initialed and dated and copy given to patient
[2021-10-12] MEDS: levofloxacin-dextrose 5 % 500 MG/100 ML PREMIX 100 MG IV (10:18)
[2021-10-12] MEDS: sennosides-docusate Tablet 1 TAB PO (10:19)
[2021-10-12] MEDS: famotidine 20 mg/2 mL INJ IVP (10:19)
[2021-10-12 11:01] VITALS: BP 127/75; PULSE 87; RESP 16; TEMP 36.4; O2SAT 92
[2021-10-12 11:48] LABS: Glucose Point of Care 102 mg/dL (70-110)
--- NOTE | 2021-10-12 11:54 | P.DS_ITS ---
Discharge Providers Date of Admission: 10/09/21 17:55 Date of Discharge: October 12, 2021 Attending Provider at Admission: Fracisco Robison MD Attending Provider at Discharge: Fracisco Robison MD Primary Care Provider: Macy Stevenson DO Diagnoses at Discharge Discharge Diagnosis (1) Pneumonia: Status: Acute (2) AMS (altered mental status): Status: Acute (3) Hypernatremia: Status: Acute (4) Leukocytosis: Status: Acute (5) Dehydration: Status: Acute (6) Seizure disorder: Status: Acute (7) senior care resident: Status: Acute (8) Intellectual disability: Status: Acute Reason for Visit Reason for Visit: GENERAL WEAKNESS/ NOT EATING Hospital Course Hospital Course History taken to chart review and talking to sister at bedside. Lexis Eckert is a 61 year old female with past medical history of hydrocephalus, assisted resident, seizure disorder, at baseline aphasic with intellectual disabilities, COVID-19 last year presented to the ER from assisted. As per the sister patient has been having a rough month. Initially she had a stomach bug when she is having diarrhea, nausea and vomiting followed by lethargy, poor oral intake, increasing confusion. At baseline as per the sister patient is aphasic, not able to recognize anybody but for last few days to weeks she is becoming more confused and thrashing her limbs and legs more with poor oral intake. At baseline patient takes soft diet. As per the sister at bedside patient is DNR/DNI. They would not want any aggressive treatment and would want to hold off on NG tube placement as long as possible. Blood work in the ER showed a white count 21,000, hemoglobin of 15.5, MCV of 100.6, sodium of 160, chloride of 119, creatinine of 0.7, alkaline phosphatase of 150, UA negative for nitrite, 2+ leuk esterase. On admission patient was extremely dehydrated. She was admitted to the floors for further work-up and treatment. At start she was started on broad-spectrum antibiotics and IV hydration for hypernatremia. Her blood cultures remain negative. IV antibiotics were stopped and she was monitored off antibiotics. Patient has remained hemodynamically stable and afebrile off antibiotics. Her hypernatremia resolved with IV hydration and has remained stable. During hospitalization levels of her antiepileptics were sent out and it was found that her phenytoin levels were elevated. Her phenytoin was withheld. Repeat phenytoin level on the day of discharge is elevated as well. On admission there were concerns of aspiration pneumonia which were ruled out with patient leukoc ytosis resolving rapidly with IV hydration, maintaining saturations on room air. Her diet was changed as per swallow evaluation. Patient's DPOA/sister is usually at bedside and her care was discussed in detail. Patient's oral intake during hospitalization has been extremely poor. It was discussed in detail with sister regarding further nutrition options including PEG tube placement. Family ancestry for now have decided to hold off on PEG tube placement given patient's baseline poor mental and physical capacity and as it would not add to her quality of life. She is discharged back to SNF for further rehabitation. It is advised to continue diet as much as possible. They are advised to repeat phenytoin level in next 1 week and to restart phenytoin as per discussion with outpatient neuro logist. For now continue clobazam and Keppra and hold off on phenytoin till repeat phenytoin levels are within normal limits. Physical Exam Narrative: EXAM NARRATIVE: General: No acute distress, aphasic, more calm today HEENT: PERRLA, pupils bilaterally equal and reactive Chest: Normal vesicular breath sounds, coarse crackles present in right middle and lower zone, equal good air entry bilaterally CVS: S1-S2 regular, no murmurs, no tachycardia, no gallops, no rubs Abdomen: Soft, nontender, no organomegaly, bowel sounds present Neuro: No facial deformity, moving all 4 limbs Urinary Catheter Management^: Mcgrath: Cath Placed During This Visit: yes Reason for Continuing Indwelling Catheter: Acute Urinary Retention or Obstruction Urinary Catheter Date of Insertion: 10/09/21 Urinary Catheter Time of Insertion: 23:30 Discharge Data Data Completed and Pending: Completed Studies During Hospitalization Category Date Time Status CT chest abd pel w con* Urgent Cat Scan 10/09/21 17:50 Completed XR chest 1V masoud ble [id number] Urgent Exams 10/09/21 09:39 [place] [id number] Urgent Ultrasound 10/10/21 22:41 Completed Pending at discharge Category Date Time Status Blood Culture Sta t Lab 10/09/21 19:00 Results Levetiracetam Kep pra Routine Lab 10/09/21 16:55 Received Sputum Culture an d Gram Stain Stat Lab 10/09/21 17:47 Uncollected Urine Random Lyte s Stat Lab 10/09/21 Ordered Labs from last 24 hours 10/12/21 10/12/21 10/12/21 10:58 05:04 05:04 WBC RBC Hgb Hct MCV MCH MCHC RDW Plt Count MPV Neut % (Auto) Lymph % (Auto) Yancey % (Auto) Eos % (Auto) Baso % (Auto) Neut # (Auto) Lymph # (Auto) Yancey # (Auto) Eos # (Auto) Baso # (Auto) Nucleated RBC % (a uto) Nucleated RBCs # Sodium 144 Potassium 4.0 Chloride 110 H Carbon Dioxide 22 Anion Gap 16.0 BUN 6 L Creatinine 0.6 GFR Calculation 102.0 Glucose 116 H POC Glucose 102 Calculated Osmolal ity 297 H Calcium 7.9 L Total Bilirubin 0.3 AST 11 ALT < 5 Alkaline Phosphata se 104 Total Protein 6.6 Albumin 3.1 L Globulin 3.5 Phenytoin 31.9 H* 10/12/21 10/12/21 10/11/21 05:04 03:54 20:43 WBC 4.9 RBC 4.31 Hgb 13.4 Hct 42.4 MCV 98.4 MCH 31.1 MCHC 31.6 RDW 13.2 Plt Count 169 MPV 12.6 H Neut % (Auto) 47.8 Lymph % (Auto) 38.9 Yancey % (Auto) 10.0 Eos % (Auto) 2.9 Baso % (Auto) 0.2 Neut # (Auto) 2.33 Lymph # (Auto) 1.9 Yancey # (Auto) 0.5 Eos # (Auto) 0.1 Baso # (Auto) 0.0 Nucleated RBC % (a uto) 0 Nucleated RBCs # 0.0 Sodium Potassium Chloride Carbon Dioxide Anion Gap BUN Creatinine GFR Calculation Glucose POC Glucose 114 H 151 H Calculated Osmolal ity Calcium Total Bilirubin AST ALT Alkaline Phosphata se Total Protein Albumin Globulin Phenytoin 10/11/21 10/11/21 10/11/21 16:24 11:54 11:54 WBC 4.8 RBC 4.16 Hgb 13.2 Hct 41.2 MCV 99.0 MCH 31.7 MCHC 32.0 RDW 13.6 Plt Count 180 MPV 12.6 H Neut % (Auto) 44.2 Lymph % (Auto) 43.1 Yancey % (Auto) 8.8 Eos % (Auto) 3.3 Baso % (Auto) 0.2 Neut # (Auto) 2.12 Lymph # (Auto) 2.1 Yancey # (Auto) 0.4 Eos # (Auto) 0.2 Baso # (Auto) 0.0 Nucleated RBC % (a uto) 0 Nucleated RBCs # 0.0 Sodium 145 Potassium 3.1 L Chloride 110 H Carbon Dioxide 22 Anion Gap 16.1 BUN 11 Creatinine 0.5 GFR Calculation 125.9 Glucose 116 H POC Glucose 129 H Calculated Osmolal ity 300 H Calcium 7.6 L Total Bilirubin 0.3 AST 10 ALT < 5 Alkaline Phosphata se 97 Total Protein 6.0 L Albumin 3.1 L Globulin 2.9 Phenytoin Addt'l Data from Hospital Stay: Laboratory Results WBC 4.9 10^3/uL (4.0- 10.0) 10/12/21 05:04 RBC 4.31 10^6/uL (4.1 -5.3) 10/12/21 05:04 Hgb 13.4 g/dL (11.5-1 5.3) 10/12/21 05:04 Hct 42.4 % (37.0-47.0 ) 10/12/21 05:04 MCV 98.4 fl (81-99) 10/12/21 05:04 MCH 31.1 pg (28.0-34. 0) 10/12/21 05:04 MCHC 31.6 g/dL (30.0-3 6.0) 10/12/21 05:04 RDW 13.2 % (12.1-15.1 ) 10/12/21 05:04 Plt Count 169 10^3/cmm (130 -400) 10/12/21 05:04 MPV 12.6 fL (7.4-10.4 ) H 10/12/21 05:04 Neut % (Auto) 47.8 % 10/12/21 05:04 Lymph % (Auto) 38.9 % 10/12/21 05:04 Yancey % (Auto) 10.0 % 10/12/21 05:04 Eos % (Auto) 2.9 % 10/12/21 05:04 Baso % (Auto) 0.2 % 10/12/21 05:04 Neut # (Auto) 2.33 10^3/uL (1.8 -7.7) 10/12/21 05:04 Lymph # (Auto) 1.9 10^3/uL (0.8- 4.8) 10/12/21 05:04 Yancey # (Auto) 0.5 10^3/uL (0.2- 0.9) 10/12/21 05:04 Eos # (Auto) 0.1 10^3/uL (0.0- 0.8) 10/12/21 05:04 Baso # (Auto) 0.0 10^3/uL (0.0- 0.1) 10/12/21 05:04 Nucleated RBC % (a uto) 0 % 10/12/21 05:04 Nucleated RBCs # 0.0 /100WBC 10/12/21 05:04 Sodium 144 mmol/L (136-1 45) 10/12/21 05:04 Potassium 4.0 mmol/L (3.5-5 .1) 10/12/21 05:04 Chloride 110 mmol/L (98-10 7) H 10/12/21 05:04 Carbon Dioxide 22 mmol/L (22-29) 10/12/21 05:04 Anion Gap 16.0 (5-19) 10/12/21 05:04 BUN 6 mg/dL (8-23) L 10/12/21 05:04 Creatinine 0.6 mg/dL (0.5-0. 9) 10/12/21 05:04 GFR Calculation 102.0 mL/min (90- 130) 10/12/21 05:04 Glucose 116 mg/dL (65-115 ) H 10/12/21 05:04 POC Glucose 102 mg/dL (70-110 ) 10/12/21 10:58 Estimat Average Gl ucose 128 10/09/21 16:55 Hemoglobin A1c 6.1 % (4.0-6.0) H 10/09/21 16:55 Calculated Osmolal ity 297 mOsm/kg (285- 295) H 10/12/21 05:04 Calcium 7.9 mg/dL (8.5-10 .5) L 10/12/21 05:04 Phosphorus 2.5 mg/dL (2.5-4. 5) 10/10/21 05:12 Magnesium 2.7 mg/dL (1.7-2. 3) H 10/09/21 19:10 Iron 31 ug/dL (37-145) L 10/09/21 19:10 TIBC 213.79661 mcg/dl 10/09/21 19:10 % Saturation 14.0 % (20-50) L 10/09/21 19:10 Unsat Iron Binding > 182 ug/dL (112- 347) 10/09/21 19:10 Total Bilirubin 0.3 mg/dL (0.15-1 .2) 10/12/21 05:04 AST 11 U/L (0-32) 10/12/21 05:04 ALT < 5 U/L (0-33) 10/12/21 05:04 Alkaline Phosphata se 104 IU/L (35-105) 10/12/21 05:04 Creatine Kinase 19 U/L (26-192) L 10/09/21 19:10 Total Protein 6.6 g/dL (6.6-8.7 ) 10/12/21 05:04 Albumin 3.1 g/dL (3.5-5.2 ) L 10/12/21 05:04 Globulin 3.5 g/dL (1.3-4.6 ) 10/12/21 05:04 Triglycerides 93 mg/dL (0-150) 10/10/21 05:12 Cholesterol 152 mg/dL (0-200) 10/10/21 05:12 LDL Cholesterol, C alc 87 mg/dL (50-129) 10/10/21 05:12 HDL Cholesterol 46 mg/dL (60-100) L 10/10/21 05:12 LDL/HDL Ratio 1.89 RATIO (0.00- 3.22) 10/10/21 05:12 Cholesterol/HDL Ra sondra 3.30 mg/dL (0.0-4 .40) 10/10/21 05:12 Vitamin B12 660 pg/mL (232-12 45) 10/10/21 14:10 Folate 6.9 ng/mL (4.8-37 .3) 10/10/21 14:10 Procalcitonin 0.21 ng/mL (0-0.5 ) 10/09/21 19:10 TSH 1.02 uIU/mL (0.27 -4.20) 10/09/21 19:10 Urine Color Yellow (Yellow) 10/09/21 16:55 Urine Appearance Cloudy (CLEAR) 10/09/21 16:55 Urine pH 5 (5-7) 10/09/21 16:55 Ur Specific Gravit y 1.025 (1.005-1.0 30) 10/09/21 16:55 Urine Protein 1+ (Negative) H 10/09/21 16:55 Urine Glucose (UA) Trace (Normal) H 10/09/21 16:55 Urine Ketones 1+ (Negative) H 10/09/21 16:55 Urine Blood Neg (Negative) 10/09/21 16:55 Urine Nitrate Negative (Negati ve) 10/09/21 16:55 Urine Bilirubin 1+ (Negative) H 10/09/21 16:55 Urine Urobilinogen 4 mg/dL (Negative ) H 10/09/21 16:55 Ur Leukocyte Rachael ase 2+ (Negative) H 10/09/21 16:55 Urine RBC 0-4 /hpf (0-2) H 10/09/21 16:55 Urine WBC 5-10 /hpf (0-5) H 10/09/21 16:55 Ur Squamous Epith Cells 5-10 /hpf (0-5) H 10/09/21 16:55 Amorphous Sediment Not Reportable 10/09/21 16:55 Urine Bacteria 3+ /hpf (NONE) H 10/09/21 16:55 Hyaline Casts 0-4 /lpf H 10/09/21 16:55 Urine Mucus 1+ /hpf 10/09/21 16:55 Phenytoin 31.9 ug/mL (10-20 ) H* 10/12/21 05:04 Influenza Type A A g Negative (Negati ve) 10/08/21 23:37 Influenza Type B A g Negative (Negati ve) 10/08/21 23:37 SARS-CoV-2 Ag (Rap id) Negative (Negati ve) 10/09/21 16:55 Impressions Chest X-Ray 10/09/21 09:39 IMPRESSION: 1. Groundglass infiltrate in the right lower lobe. This could represent chronic change or active pneumonia. Chest/Abdomen/Pelvis CT 10/09/21 17:50 IMPRESSION: 1. No acute abnormality identified in the abdomen or pelvis. 2. Stool volume in the colon and rectum could indicate constipation. Radiation Dose CTDIVOL = (mGy): DLP = 2135.87~2135.87 (mGy-cm) Microbiology 10/10/21 14:00 Nose MRSA Culture - Final 10/09/21 16:55 Urine,Clean Catch Urine Culture - Final 10/09/21 19:00 Blood Blood Culture - Preliminary NEGATIVE TO DATE 10/09/21 19:10 Blood Blood Culture - Preliminary NEGATIVE TO DATE 10/09/21 16:55 Urine Kidney Bacterial Antigens - Final 10/09/21 16:55 Unknown Source Legionella Urinary Antigen - Final Vitals: Last Vital Signs Temp 97.6 F 10/12/21 11:01 Pulse 87 10/12/21 11:01 Resp 16 10/12/21 11:01 BP 127/75 10/12/21 11:01 Pulse Ox 92 10/12/21 11:01 Discharge Plan Discharge Patient Disposition: Xfer SNF Condition: Stable Prescriptions: New magnesium hydroxide [Milk of Magnesia] 400 mg/5 mL Suspension 30 ml PO DAILY PRN (Reason: Constipation (see protocol)) Qty: 50 RF: 0 Continued clobazam 10 mg tablet 5 mg PO DAILY RF: 0 levetiracetam 1,000 mg tablet 1,000 mg PO BID RF: 0 ClearLax 17 gram Powder In Packet 17 g PO DAILY RF: 0 Viactiv 650 mg-12.5 mcg-40 mcg Tablet,Chewable 1 tab PO DAILY RF: 0 Senna-S 8.6-50 mg Tablet 1 tab-cap PO BID RF: 0 cranberry 400 mg Capsule 400 mg PO BID RF: 0 naproxen 500 mg Tablet 500 mg PO BID RF: 0 Held phenytoin 125 mg/5 mL suspension 230 mg PO BID RF: 0 Hold Instructions: Resume on 10/19/21. Discharge Orders: Discharge Order (Routine); Ordered 10/12/21 Ordered By: Fracisco Robison Referrals: Macy Stevenson DO [Primary Care Provider] - 2 weeks Discharge Diet: Advance as tolerated and As Directed Patient Instructions: Opioid Safety Activity Restrictions/Additional Instructions: Dysphagia 1 level. Pur?e diet. Please follow your primary care provider within next 2 weeks. Please repeat phenytoin level in 1 week and restart phenytoin only if levels are appropriate after confirming with outpatient neurologist. Please try and increase diet as possible to maintain hydration. Various nutrition option has been discussed in detail with family and patient's guardian. For now they would want to hold off on PEG tube placement as it would not help with quality of life. Discharge Attestations Time Spent in Discharge Care*: greater than 30 min Specific Discharge Activities: educating and/or supporting family/caregiver, discussing with pcp/other providers, discussing with geriatric case manager/social workers/dc planners, documenting/other paperwork and evaluating patient/reviewing data Status at Discharge: Cognitive status at discharge: severely impaired cognition , Behavioral status at discharge: cooperative , Functional status at discharge: bed bound Overall status at discharge: patient is back to baseline Quality Metrics Clinical Quality Measures During this hospital stay, did patient experience: None Coding Level of Care Code Acute Chg FW DC note Diagnoses Pneumonia J18.9 AMS (altered mental status) R41.82 Hypernatremia E87.0 Leukocytosis D72.829 Dehydration E86.0 Seizure disorder G40.909 senior care resident Z59.3 Intellectual disability F79
--- NOTE | 2021-10-12 13:57 | PC.CHAP ---
Pastoral Care Encounter/Spiritual Assessment Type of Contact [] Declined healthcare risk control consultant visit [] Patient/Family/Request visit [] Outpatient visit [xx] Follow-up visit [] Physician referral [] Code/Alert [xx] Routine visit [] Staff referral [] Actively dying [] Patient sleeping [] Family support [] [] Out of room [] Palliative care [] [] Receiving care in room [] Pre-surgical visit [] Trauma [] Long length of stay [] ICU visit [] Other: Relational/Emotional Strength [xx] Patient feels connected with others/family/visitors/staff [] Distress [] Loneliness/isolation [] Abandonment Spirituality of Patient [] Person of Lauren [] Attends Sikh of their Lauren [] Believes in Prayer [] Reads Bible or Episcopal materials [] There are Spiritual issues to be addressed Job Compositor Interventions [] Prayer [xx] Active listening [xx] Non-anxious presence [] Spiritual/emotional support [] Crisis/trauma care [] Spiritual counseling [] Bereavement support [] Provided bereavement packet [] Provided Bible/devotional materials [] Provided toy/stuffed animal, coloring book to patient or family member [] Provided Communion [] Anointing/[place] [] Salvation [x] Completed spiritual assessment [] Other: Impact on Illness or Injury [] Angry [] Fearful [] Anxious [] Often cries [] Exhaustion [] Unable to work [] Unable to attend zoroastrianism [] Unable to walk/stand [] Unable to read [] Unable to drive [] Unable to eat/drink [] Unable to sleep [] Unable to be with family [] Patient intubated [] Other: Summary Attendant present (sister?) who stated patient is nonverbal and has the mentality of an . The attendant stated prayer would not be necessary as patient is being discharged soon. Time spent with patient 3 minutes
[2021-10-12 16:00] VITALS: BP 135/77; PULSE 93; RESP 16; TEMP 36.6; O2SAT 93
[2021-10-12 21:43] LABS: Glucose Point of Care 87 mg/dL (70-110)
[2021-10-13] VITALS: BP 103/68; PULSE 92; RESP 16; TEMP 36.4; O2SAT 92
[2021-10-13 04:00] VITALS: BP 123/83; PULSE 75; RESP 16; TEMP 36.6; O2SAT 94
[2021-10-13 05:20] LABS: Glucose Point of Care 104 mg/dL (70-110)
--- NOTE | 2021-10-13 09:38 | PC.NURSE ---
Patient left facility per stretcher via non-EMS transport. No acute distress observed at this time. Patient is comfortable in the stretcher. Patient is on room air. PICC line in Left arm was removed last night. Due to transportation delay patient was not able to receive AM dose of Keppra this morning due to removal of PICC line last night. Sister removed all personal items with her upon leaving the premises.
[2021-10-13 09:48] VITALS: BP 123/83; PULSE 75; RESP 16; TEMP 36.6; O2SAT 94
[2021-10-14 10:08] LABS: Levetiracetam Keppra 27.8 mcg/mL
--- NOTE | 2021-10-16 14:40 | PC.SOCIAL ---
Per Mira RN central office operator supervisor at [facility], freelance writer doesn't need to schedule follow up neurology appointment. pt will follow orders of in house physician.
== END 2021-10-13 07:30 | disposition skilled nursing facility (03) | DRG 640 ==
LOC: ER 16:11 → MEDSURG 18:29
PROVIDERS: Physician Assistant; Admitting Provider Student in an Organized Health Care Education/Training Program; Emergency Provider Family Medicine; PCP Family Medicine; Visit Provider Student in an Organized Health Care Education/Training Program
DX: E87.0 Hyperosmolality and hypernatremia (principal); J18.9 Pneumonia, unspecified organism; G93.41 Metabolic encephalopathy; R47.01 Aphasia; E86.0 Dehydration; Z87.440 Personal history of urinary (tract) infections; Z86.16 Personal history of COVID-19; F79 Unspecified intellectual disabilities; G40.909 Epilepsy, unspecified, not intractable, without status epilepticus; K59.00 Constipation, unspecified; Z66 Do not resuscitate
CPT/HCPCS: 36415; 36416; 36569; 51702; 71045; 71260; 74177; 80048; 80053; 80061; 80177; 80185; 81001; 82550; 82607; 82746; 82962; 83036; 83540; 83550; 83735; 84100; 84145; 84443; 85025; 86403; 87040; 87086; 87426; 87449; 87641; 87804; 92526; 92610; 93970; 94640; 94664; 96365; 96372; 99285; J0456; J1650; J1720; J1815; J1953; J1956; J3370; J3480; J3490; J7050; J7611; J7626; J7799; Q0144; Q9967

== ENCOUNTER 2022-08-02 11:10 | Outpatient (CLI) | payer MEDICARE, MEDICAID, SELFPAY ==
[2022-08-02 13:24] LABS: Phenytoin Dilantin 23.9 ug/mL (10-20)
[2022-08-02 13:29] LABS: Bilirubin Urine Neg (Negative); Blood Urine Neg (Negative); Glucose Urine UA Norm (Normal); Ketones Urine Negative (Negative); Leukocyte Esterase Urine 1+ (Negative); Nitrate Urine Negative (Negative); Protein Urine Neg (Negative); Specific Gravity, Urine 1.025 (1.005-1.030); Urine Appearance Clear (CLEAR); Urine Color Yellow (Yellow); Urobilinogen Urine Norm (Negative); pH Urine 5 (5-7)
[2022-08-02 13:30] LABS: Add Urine Culture? No; Add Urine Microscopic? YES; Bacteria Urine 1+ /hpf; RBC Urine 0-4 /hpf (0-2); WBC Urine 0-4 /hpf (0-5)
== END 2022-08-02 11:11 | disposition home or self-care (01) ==
LOC: LAB 11:11
PROVIDERS: PCP Family Medicine; Visit Provider Family Medicine
DX: Z01.89 Encounter for other specified special examinations (principal)
CPT/HCPCS: 80185; 81001

== ENCOUNTER 2023-07-04 20:05 | Emergency (ER) | payer MEDICARE, MEDICAID, SELFPAY ==
[2023-07-04 20:10] VITALS: BP 164/90; PULSE 90; RESP 20; TEMP 36.2; O2SAT 97; BMI 56.7
--- NOTE | 2023-07-04 20:20 | ED_ITS ---
HPI - Recheck/Abnormal Lab/Rx General: Chief Complaint: Recheck/Abnormal Lab/Rx Stated Complaint: ABNORMAL LABS Time Seen by Provider: 07/04/23 20:15 History of Present Illness: 63-year-old female was referred to from the skilled nursing for concerns of elevated Dilantin level. Patient appears nontoxic. Patient is alert and acting normal for self. Patient is nonverbal. Patient does respond to her environment. Review of Systems Const: Denies: fever(s) or chills Card: Denies: chest pain Resp: Denies: dyspnea Musc: Denies: neck pain Skin/Breast: Denies: rash Neuro: Denies: seizure-like activity PFS ED PFSH: Medical History (Updated 07/05/23 @ 00:39 by DAJUAN Gómez) COVID-19 Hydrops fetalis, antepartum Intellectual disability intermediate resident Seizure disorder Physical Exam Const: COMMON NORMALS: alert HENMT: COMMON NORMALS: normocephalic HEAD & SCALP: normocephalic Neck/C-Spine: COMMON NORMALS: full ROM Resp: COMMON NORMALS: normal respiratory effort and clear to auscultation bilaterally AUSCULTATION: clear to auscultation bilaterally Cardio: COMMON NORMALS: regular rate and regular rhythm RATE: regular rate RHYTHM: regular rhythm : COMMON NORMALS: Yes no CVA tenderness BLADDER/KIDNEY EXAM: Yes no CVA tenderness Back/Pelvis: COMMON NORMALS: no CVA tenderness Extremity: COMMON NORMALS: normal to inspection Neuro: SENSORIUM/ORIENTATION: Yes alert Skin: COMMON NORMALS: turgor normal GENERAL SKIN EXAM: turgor normal Course Vital Signs: Vital signs: Vital Signs Temperature 97.2 F L 07/04/23 20:10 Pulse Rate 84 07/05/23 00:26 Respiratory Rate 20 H 07/04/23 20:10 Blood Pressure 124/67 07/05/23 00:26 Pulse Oximetry 96 07/05/23 00:26 Oxygen Delivery Me thod Room Air 07/05/23 00:26 MDM - Recheck/Abnormal Lab/Rx Medical Decision Making 63-year-old skilled nursing patient was referred to the ER for evaluation and repeat labs regarding abnormal Dilantin level. Patient's Dilantin level at the skilled nursing was slightly elevated at 33. Patient appears nontoxic. Patient is acting normal for self. Vital signs are normal. Differential diagnosis includes but not limited to toxic drug level, abnormal lab value, anxiety about health. CBC and CMP were unremarkable. Urinalysis had a trace of nitrates and slight increase in white blood cells on microscopy. Patient was given 1 g of Rocephin to treat urinary tract infection. Dilantin level came back at 31.5. Recommend holding phenytoin and following up with neurologist office in the morning for recommendations of when to restart the medication and at what dosing. Lab Data 07/04/23 21:00 07/04/23 21:00 Laboratory Results WBC 6.6 10^3/uL (4.0-10.0) 07/04/23 21: RBC 4.49 10^6/uL (4.1-5.3) 07/04/23 21: Hgb 13.8 g/dL (11.5-15.3) 07/04/23 21:00 Hct 44.1 % (37.0-47.0) 07/04/23 21: MCV 98.2 fl (81-99) 07/04/23 21:00 MCH 30.7 pg (28.0-34.0) 07/04/23 21: MCHC 31.3 g/dL (30.0-36.0) 07/04/23 21:00 RDW 13.3 % (12.1-15.1) 07/04/23 21:00 Plt Count 205 10^3/cmm (130-400) 07/04/23 21: MPV 10.8 fL (7.4-10.4) H 07/04/23 21:00 Neut % (Auto) 49.4 % 07/04/23 21:00 Lymph % (Auto) 35.6 % 07/04/23 21:00 Ferry % (Auto) 12.0 % 07/04/23 21:00 Eos % (Auto) 2.7 % 07/04/23 21:00 Baso % (Auto) 0.3 % 07/04/23 21:00 Neut # (Auto) 3.26 10^3/uL (1.8-7.7) 07/04/23 21:00 Lymph # (Auto) 2.4 10^3/uL (0.8-4.8) 07/04/23 21:00 Ferry # (Auto) 0.8 10^3/uL (0.2-0.9) 07/04/23 21:00 Eos # (Auto) 0.2 10^3/uL (0.0-0.8) 07/04/23 21:00 Baso # (Auto) 0.0 10^3/uL (0.0-0.1) 07/04/23 21:00 Nucleated RBC % (auto) 0 % 07/04/23 21:00 Nucleated RBCs # 0.0 /100WBC 07/04/23 21:00 Sodium 143 mmol/L (136-145) 07/04/23 21:00 Potassium 4.4 mmol/L (3.5-5.1) 07/04/23 21:00 Chloride 104 mmol/L (98-107) 07/04/23 21:00 Carbon Dioxide 26 mmol/L (22-29) 07/04/23 21:00 Anion Gap 17.4 (5-19) 07/04/23 21:00 BUN 16 mg/dL (8-23) 07/04/23 21:00 Creatinine 0.5 mg/dL (0.5-0.9) 07/04/23 21:00 GFR Calculation 125.0 mL/min (90-130) 07/04/23 21:00 Glucose 109 mg/dL (65-115) 07/04/23 21:00 Calculated Osmolality 298 mOsm/kg (285-295) H 07/04/23 21:00 Calcium 8.8 mg/dL (8.5-10.5) 07/04/23 21:00 Total Bilirubin 0.2 mg/dL (0.15-1.2) 07/04/23 21:00 AST 17 U/L (0-32) 07/04/23 21:00 ALT 10 U/L (0-33) 07/04/23 21:00 Alkaline Phosphatase 129 U/L (35-105) H 07/04/23 21:00 Total Protein 7.2 g/dL (6.6-8.7) 07/04/23 21:00 Albumin 3.9 g/dL (3.5-5.2) 07/04/23 21:00 Globulin 3.3 g/dL (1.3-4.6) 07/04/23 21:00 Urine Color Yellow (Yellow) 07/04/23 22:57 Urine Appearance Cloudy (CLEAR) A 07/04/23 22:57 Urine pH 5 (5-7) 07/04/23 22:57 Ur Specific Pelzer 1.020 (1.005-1.030) 07/04/23 22:57 Urine Protein Neg (Negative) 07/04/23 22:57 Urine Glucose (UA) Norm (Normal) 07/04/23 22:57 Urine Ketones Negative (Negative) 07/04/23 22:57 Urine Blood Neg (Negative) 07/04/23 22:57 Urine Nitrate Positive (Negative) H 07/04/23 22:57 Urine Bilirubin Neg (Negative) 07/04/23 22:57 Urine Urobilinogen Norm mg/dL (Negative) 07/04/23 22:57 Ur Leukocyte Esterase 1+ (Negative) H 07/04/23 22:57 Urine RBC 0-4 /hpf (0-2) H 07/04/23 22:57 Urine WBC 10-15 /hpf (0-5) H 07/04/23 22:57 Ur Squamous Epith Cells 0-4 /hpf (0-5) H 07/04/23 22:57 Amorphous Sediment Not Reportable 07/04/23 22:57 Urine Bacteria 2+ /hpf (NONE) H 07/04/23 22:57 Urine Mucus Trace /hpf 07/04/23 22:57 Phenytoin 31.5 ug/mL (10-20) H* 07/04/23 21:00 Discharge Plan Discharge Patient Disposition: Home Clinical Impression: Elevated phenytoin level, UTI (urinary tract infection) due to Enterococcus Condition: Stable Prescriptions: No Action clobazam 10 mg tablet 5 mg PO DAILY levetiracetam 1,000 mg tablet 1,000 mg PO BID phenytoin 125 mg/5 mL suspension 230 mg PO BID Hold Instructions: Resume on 10/19/21. ClearLax 17 gram Powder In Packet 17 g PO DAILY Viactiv 650 mg-12.5 mcg-40 mcg Tablet,Chewable 1 tab PO DAILY Senna-S 8.6-50 mg Tablet 1 tab-cap PO BID cranberry 400 mg Capsule 400 mg PO BID naproxen 500 mg Tablet 500 mg PO BID Milk of Magnesia 400 mg/5 mL Suspension 30 ml PO DAILY PRN (Reason: Constipation (see protocol)) Qty: 50 0RF Discharge Orders: Discharge ED (Routine); Ordered 07/05/23 Ordered By: Sixto Castelan Referrals: Macy Stevenson DO [Physician] - Discharge Diet: Usual diet Discharge Activity: Resume usual activity Patient Instructions: Urinary Tract Infection in Older Adults (ED) Activity Restrictions/Additional Instructions: Encourage plenty of water and fluids. Patient was given a dose of Rocephin in the emergency room for probable urinary tract infection. Recommend recheck urine in 1 week. Hold phenytoin and follow-up with on-call neurologist in the morning for recommendation for phenytoin dosing changes. Follow-up with primary care in 1 week for recheck. Return to ED for new concerns. Coding Level of Care Code ED Well Logging Captain Mud Analysis for Libby Pillai
[2023-07-04 21:07] LABS: Basophils % 0.3 %; Eosinophils # 0.2 10^3/uL (0.0-0.8); Eosinophils % 2.7 %; Hematocrit 44.1 % (37.0-47.0); Hemoglobin 13.8 g/dL (11.5-15.3); Lymphocytes # 2.4 10^3/uL (0.8-4.8); Lymphocytes % 35.6 %; Mean Corpuscular HGB Conc 31.3 g/dL (30.0-36.0); Mean Corpuscular Hemoglobin 30.7 pg (28.0-34.0); Mean Corpuscular Volume 98.2 fl (81-99); Mean Platelet Volume 10.8 fL (7.4-10.4); Monocytes # 0.8 10^3/uL (0.2-0.9); Neutrophils # 3.26 10^3/uL (1.8-7.7); Neutrophils % 49.4 %; Nucleated Red Blood Cells % 0 %; Platelet Count 205 10^3/cmm (130-400); Red Blood Count 4.49 10^6/uL (4.1-5.3); Red Cell Distribution Width 13.3 % (12.1-15.1); White Blood Count 6.6 10^3/uL (4.0-10.0)
[2023-07-04 21:33] LABS: Alanine Aminotransferase 10 U/L (0-33); Albumin Level 3.9 g/dL (3.5-5.2); Alkaline Phosphatase 129 U/L (35-105); Blood Urea Nitrogen 16 mg/dL (8-23); Calcium 8.8 mg/dL (8.5-10.5); Carbon Dioxide 26 mmol/L (22-29); Chloride 104 mmol/L (98-107); Globulin 3.3 g/dL (1.3-4.6); Glucose 109 mg/dL (65-115); Osmolality Calculated 298 mOsm/kg (285-295); Sodium 143 mmol/L (136-145); Total Bilirubin 0.2 mg/dL (0.15-1.2); Total Protein 7.2 g/dL (6.6-8.7)
[2023-07-04 21:39] LABS: Anion Gap 17.4 (5-19); Aspartate Amino Transferase 17 U/L (0-32); Potassium 4.4 mmol/L (3.5-5.1)
[2023-07-04 23:15] LABS: Urine Appearance Cloudy (CLEAR); Urine Color Yellow (Yellow); pH Urine 5 (5-7)
[2023-07-04 23:16] LABS: Add Urine Microscopic? YES; Bilirubin Urine Neg (Negative); Blood Urine Neg (Negative); Glucose Urine UA Norm (Normal); Ketones Urine Negative (Negative); Leukocyte Esterase Urine 1+ (Negative); Nitrate Urine Positive (Negative); Protein Urine Neg (Negative); Urobilinogen Urine Norm (Negative)
[2023-07-04 23:17] LABS: Bacteria Urine 2+ /hpf; RBC Urine 0-4 /hpf (0-2); Squamous Epithelial Cell Urine 0-4 /hpf (0-5)
[2023-07-04 23:18] LABS: Add Urine Culture? Yes; Mucus Urine TRACE /hpf
[2023-07-05 00:26] VITALS: BP 124/67; PULSE 84; O2SAT 96
[2023-07-05] MEDS: cefTRIAXone 1,000 MG in water for injection-sterile 2.1 ML 2.1 MG IM (00:28)
[2023-07-05 00:53] LABS: Phenytoin Dilantin 31.5 ug/mL (10-20)
[2023-07-05 02:00] VITALS: BP 121/62; PULSE 78; O2SAT 94
[2023-07-05 04:08] VITALS: BP 111/57; PULSE 75; RESP 18; O2SAT 91
== END 2023-07-05 04:04 | disposition home or self-care (01) ==
PROVIDERS: Emergency Medicine; Emergency Provider Nurse Practitioner Family; PCP Internal Medicine
DX: N39.0 Urinary tract infection, site not specified (principal); B95.2 Enterococcus as the cause of diseases classified elsewhere
CPT/HCPCS: 51701; 80053; 80185; 81001; 85025; 87077; 87086; 87186; 96372; 99284; J0696